=== PATIENT | male | born 1990 | race Caucasian/White ===

== ENCOUNTER 2021-04-02 14:10 | Emergency (ER) | payer OTHER ==
[2021-04-02 14:22] VITALS: BP 131/81; PULSE 75; O2SAT 99
[2021-04-02] MEDS ORDERED: Kenalog-40 IM ONE (14:44)
[2021-04-02] MEDS ORDERED: BENADRYL 25 MG CAPSULE PO ONE (14:44)
[2021-04-02] MEDS ORDERED: BENADRYL 25 MG CAPSULE ONE (14:50)
[2021-04-02] MEDS ORDERED: Kenalog-40 ONE (14:50)
--- NOTE | 2021-04-02 14:50 | ERPHSYRPT ---
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 No swelling or redness of adjacent skin. Also has some rash on the left side of abdomen. 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 No difficulty breathing, choking sensation or difficulty swallowing. Timing/Duration: week(s) (1), constant, gradual onset, worse Quality: burning, itchy Severity: moderate Location: torso, extremities Possible Causes: exposure to allergen Modifying Factors: Improves With: calamine lotion, prednisone Associated Symptoms: rash, No blisters, No change in skin texture Allergies/Adverse Reactions: sulfamethoxazole [From Bactrim] Allergy (Verified 04/02/21 14:23) trimethoprim [From Bactrim] Allergy (Verified 04/02/21 14:23) Hx Tetanus, Diphtheria Vaccination/Date Given: Yes (UP TO DATE) Hx Influenza Vaccination/Date Given: No Hx Pneumococcal Vaccination/Date Given: No Travel Risk - International Travel Have you traveled outside of the country in past 3 weeks: No If Yes, where;: N - Coronavirus Screening Are you exhibiting any of the following symptoms?: No Close contact with a COVID-19 positive Pt in past 14-21 Days: No - Vaccine Status Have you recieved a Covid-19 vaccination: No - Review of Systems Constitutional: No Symptoms Ears, Nose, & Throat: No Symptoms Respiratory: No Symptoms Cardiac: No Symptoms Abdominal/Gastrointestinal: No Symptoms Genitourinary Symptoms: No Symptoms Musculoskeletal: No Symptoms Skin: Pruritis, Rash Neurological: No Symptoms Psychological: No Symptoms Endocrine: No Symptoms Hematologic/Lymphatic: No Symptoms - Past Medical History Pertinent Past Medical History: Yes Neurological History: Seizures ENT History: No Pertinent History Cardiac History: No Pertinent History Respiratory History: No Pertinent History Endocrine Medical History: No Pertinent History Musculoskeletal History: No Pertinent History GI Medical History: No Pertinent History Psycho-Social History: Depression Male Reproductive Disorders: No Pertinent History Other Medical History: SCHIZOPHRENIA - Past Surgical History Past Surgical History: No Other Surgical History: . - Social History Smoking Status: Current some day smoker How long have you smoked: 15 Exposure to second hand smoke: Yes Drug Use: none Patient Lives Alone: No - Nursing Vital Signs Nursing Vital Signs: Initial Vital Signs Temperature 97.8 F 04/02/21 14:15 Pulse Rate 75 04/02/21 14:15 Blood Pressure 131/81 04/02/21 14:15 O2 Sat by Pulse Oximetry 99 04/02/21 14:15 Pain Scale Pain Intensity 0 - Physical Exam General Appearance: no apparent distress, alert Eye Exam: PERRL/EOMI, eyes nml inspection Ears, Nose, Throat Exam: normal ENT inspection, TMs normal, pharynx normal Neck Exam: normal inspection, supple, full range of motion Respiratory Exam: normal breath sounds, lungs clear Cardiovascular Exam: regular rate/rhythm, normal heart sounds Extremity Exam: other (Papular rash both forearm volar aspect up to elbows with itch dior. No increased temperature, nontender, blanchable, no induration. 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 We will continue with short course of oral steroid and Benadryl to go home. Recommended avoiding allergens or using protective clothing's. Discussed signs symptoms of worsening needing return to ER which he seems understanding. Counseled pt/family regarding: diagnosis, need for follow-up - Departure Departure Disposition: Home Clinical Impression: Contact dermatitis due to plants, except food Qualifiers: Contact dermatitis type: irritant Qualified Code(s): L24.7 - Irritant contact dermatitis due to plants, except food Condition: Stable Critical Care Time: No Referrals: DELROY CRESPO MD [Primary Care Provider] - Follow Up with PCP/3 days Instructions: Poison Vane, Poison [place], Poison [place] (DC) Additional Instructions: Use calamine lotion 2-3 times a day. Use protective clothing to avoid allergen exposure again. Follow-up with primary care for reevaluation. Return to ER for worsening rash or if develop difficulty breathing/swallowing/choking sensation etc. Prescriptions: Diphenhydramine HCl 25 mg [Benadryl 25 mg Capsule] 25 mg PO Q4H PRN PRN #20 cap PRN Reason: Allergies Prednisone 20 mg [Deltasone 20 mg] 60 mg PO DAILY 5 Days #15 tablet
== END 2021-04-02 15:15 | disposition home or self-care (01) ==
LOC: ED 14:10
DX: L24.7 Irritant contact dermatitis due to plants, except food (principal)
CPT/HCPCS: 96372; 99283; J3301; A9270-GY

== ENCOUNTER 2023-03-24 14:42 | Emergency (ER) | payer OTHER ==
--- NOTE | 2023-03-24 17:32 | ERPHSYRPT ---
- History of Present Illness Time Seen by Provider: 03/24/23 17:27 Historian: patient, family Exam Limitations: no limitations Patient Subjective Stated Complaint: right side abdominal discomfort Triage Nursing Assessment: Patient reports to ER with complaints of right side upper abdominal pain rating pain 5/10 at this time. Patient states he has been having this pain for a couple of weeks and that it is progressively getting worse. Patient describes pain as constant and states that pain is worsened when he lays on his right side. Patient also reports loose stools and intermittent nausea over the last couple of weeks. Physician History: confirmed hx with independent interview with who did recall additional details of prior medical hx of this pain. Pt has had some abd pain - rad ti right chest weeks x2 s but no workup yet and has had runny stools for more than a year. worse tonight with vomiting. tender right upper quad. no peritoneal signs. Chest clear ht reg without M. ext without edema. no prior known CAD. discussed risk/benefits of CT, CBC, CMP, Lactate, Lipase, AMylase, UA, ekg, trop with pt and family and they wish to proceed - these were ordered adn resaults discussed with pt and family. Timing/Duration: week(s) Activities at Onset: none Quality: fullness, sharpness, stabbing Abdominal Pain Onset Location: RUQ, epigastric Pain Radiation: chest Severity of Pain-Max: moderate Severity of Pain-Current: moderate Modifying Factors: Improves With: nothing Associated Symptoms: nausea, vomiting Previous symptoms: same symptoms as today Allergies/Adverse Reactions: sulfamethoxazole [From Bactrim] Allergy (Verified 03/24/23 15:46) trimethoprim [From Bactrim] Allergy (Verified 03/24/23 15:46) Home Medications: No Reportable Medications [No Reported Medications] 03/24/23 [History] Hx Tetanus, Diphtheria Vaccination/Date Given: Yes Hx Influenza Vaccination/Date Given: No Hx Pneumococcal Vaccination/Date Given: No Travel Risk - International Travel Have you traveled outside of the country in past 3 weeks: No - Coronavirus Screening Are you exhibiting any of the following symptoms?: No Close contact with a COVID-19 positive Pt in past 14-21 Days: No - Vaccine Status Have you recieved a Covid-19 vaccination: No - Review of Systems Constitutional: No Fever, No Chills Eyes: No Symptoms Ears, Nose, & Throat: No Symptoms Respiratory: No Cough, No Dyspnea Cardiac: Other (rad to right chest), No Chest Pain, No Edema, No Syncope Abdominal/Gastrointestinal: Abdominal Pain, Nausea, Vomiting, Diarrhea Genitourinary Symptoms: No Dysuria Musculoskeletal: No Back Pain, No Neck Pain Skin: No Rash Neurological: No Dizziness, No Focal Weakness, No Sensory Changes Psychological: No Symptoms Endocrine: No Symptoms Hematologic/Lymphatic: No Symptoms Immunological/Allergic: No Symptoms All Other Systems: Reviewed and Negative - Past Medical History Pertinent Past Medical History: Yes Neurological History: Seizures ENT History: No Pertinent History Cardiac History: No Pertinent History Respiratory History: No Pertinent History Endocrine Medical History: No Pertinent History Musculoskeletal History: No Pertinent History GI Medical History: No Pertinent History History: No Pertinent History Psycho-Social History: No Pertinent History Male Reproductive Disorders: No Pertinent History Other Medical History: hx drug induced seizures and schizophrenia - Past Surgical History Past Surgical History: No Neuro Surgical History: No Pertinent History Cardiac: No Pertinent History Respiratory: No Pertinent History Gastrointestinal: No Pertinent History Genitourinary: No Pertinent History Musculoskeletal: No Pertinent History Male Surgical History: No Pertinent History Other Surgical History: . - Social History Smoking Status: Former smoker How long have you smoked: 15 Exposure to second hand smoke: Yes Drug Use: none Patient Lives Alone: No - Nursing Vital Signs Nursing Vital Signs: Initial Vital Signs Pulse Rate 72 03/24/23 15:47 Respiratory Rate 19 03/24/23 15:47 Blood Pressure 128/72 03/24/23 15:47 O2 Sat by Pulse Oximetry 97 03/24/23 15:47 Pain Scale Pain Intensity 5 - Physical Exam General Appearance: no apparent distress, alert Eye Exam: PERRL/EOMI, eyes nml inspection Ears, Nose, Throat Exam: normal ENT inspection, pharynx normal, moist mucous membranes Neck Exam: normal inspection, non-tender, supple, full range of motion Respiratory Exam: normal breath sounds, lungs clear, No respiratory distress Cardiovascular Exam: regular rate/rhythm, normal heart sounds Gastrointestinal/Abdomen Exam: soft, tenderness, guarding, No mass, No rebound, No hernia Rectal Exam: deferred Back Exam: normal inspection, normal range of motion, No CVA tenderness, No vertebral tenderness Extremity Exam: normal inspection, normal range of motion, pelvis stable Neurologic Exam: alert, oriented x 3, cooperative, normal mood/affect, nml cerebellar function, sensation nml, No motor deficits Skin Exam: normal color, warm, dry SpO2 Interpretation: normal SpO2: 97 O2 Delivery: Room Air - Course Nursing assessment & vital signs reviewed: Yes EKG Interpreted by Me: Sinus Rhythm, Right [place] Deviation, Other (early repol with ST changes) - CT Exams Abdomen/Pelvis CT Interpretation: Other (right supraq renal cyst) Ordered Tests: Active Orders 24 hr Category Date Time Status EKG-ER Only STAT Care 03/24/23 17:20 Active ABDOMEN AND PELVIS W/0 CONTRAS [CT] Stat Exams 03/24/23 17:15 Completed AMYLASE Stat Lab 03/24/23 17:35 Completed CBC W DIFF Stat Lab 03/24/23 17:35 Completed CMP Stat Lab 03/24/23 17:35 Completed LIPASE Stat Lab 03/24/23 17:35 Completed Lactic Acid Stat Lab 03/24/23 17:30 Completed TROPONIN Q4H Lab 03/24/23 17:35 Completed TROPONIN Q4H Lab 03/24/23 21:30 Ordered TROPONIN Q4H Lab 03/25/23 01:15 Ordered UA W/RFX UR CULTURE Stat Lab 03/24/23 17:15 Completed Lab/Rad Data: Laboratory Result Diagrams 03/24/23 17:35 03/24/23 17:35 Laboratory Results 03/24/23 03/24/23 03/24/23 Range/Units 17:35 17:35 17:30 WBC 5.6 (4.0-10.5) x10^3/uL RBC 5.07 (4.1-5.6) x10^6/uL Hgb 15.7 (12.5-18.0) g/dL Hct 45.6 (42-50) % MCV 89.9 (78-100) fL MCH 31.0 (26-32) pg MCHC 34.4 (32-36) g/dL RDW 11.4 L (11.5-14.0) % Plt Count 206 (150-450) x10^3/uL MPV 9.2 (7.5-11.0) fL Gran % 47.3 (36.0-66.0) % Immature Gran % (Auto) 0.2 (0.00-0.4) % Nucleat RBC Rel Count 0.0 (0.00-0.1) % Eos # (Auto) 0.23 (0-0.5) x10^3/uL Immature Gran # (Auto) 0.01 (0.00-0.03) x10^3u/L Absolute Lymphs (auto) 2.30 (1.0-4.6) x10^3/uL Absolute Monos (auto) 0.39 (0.0-1.3) x10^3/uL Absolute Nucleated RBC 0.00 (0.00-0.01) x10^3u/L Lymphocytes % 40.8 (24.0-44.0) % Monocytes % 6.9 (0.0-12.0) % Eosinophils % 4.1 (0.00-5.0) % Basophils % 0.7 (0.0-0.4) % Absolute Granulocytes 2.67 (1.4-6.9) x10^3/uL Basophils # 0.04 (0-0.4) x10^3/uL Sodium 142 (137-145) mmol/L Potassium 4.4 (3.5-5.1) mmol/L Chloride 104 (98-107) mmol/L Carbon Dioxide 29 (22-30) mmol/L Anion Gap 12.8 (5-15) MEQ/L BUN 11 (9-20) mg/dL Creatinine 1.08 (0.66-1.25) mg/dL Estimated GFR > 60.0 ML/MIN Glucose 98 (74-106) mg/dL Lactic Acid 1.1 (0.4-2.0) Calcium 9.6 (8.4-10.2) mg/dL Total Bilirubin 0.40 (0.2-1.3) mg/dL AST 29 (17-59) U/L ALT 54 H (0-50) U/L Alkaline Phosphatase 90 (38-126) U/L Troponin I < 0.012 (0.000-0.034) ng/mL Serum Total Protein 7.3 (6.3-8.2) g/dL Albumin 4.7 (3.5-5.0) g/dL Amylase 101 (30-110) U/L Lipase 85 (23-300) U/L Urine Color (Yellow) Urine Appearance (Clear) Urine pH (4.6-8.0) Ur Specific [place] (1.005-1.030) Urine Protein (Negative) Urine Glucose (UA) (Negative) mg/dL Urine Ketones (Negative) Urine Blood (Negative) Urine Nitrite (Negative) Urine Bilirubin (Negative) Urine Urobilinogen (0.2) mg/dL Ur Leukocyte Esterase (Negative) U Hyaline Cast (Auto) (0-2) /LPF Urine Microscopic RBC (0-5) /HPF Urine Microscopic WBC (0-5) /HPF Ur Epithelial Cells (None Seen) /HPF Urine Bacteria (None Seen) /HPF Urine Culture Reflexed (NO) Influenza Type A Ag (NEGATIVE) Influenza Type B Ag (NEGATIVE) RSV (PCR) (NEGATIVE) SARS-CoV-2 (PCR) (NEGATIVE) 03/24/23 03/24/23 Range/Units 17:15 17:15 WBC (4.0-10.5) x10^3/uL RBC (4.1-5.6) x10^6/uL Hgb (12.5-18.0) g/dL Hct (42-50) % MCV (78-100) fL MCH (26-32) pg MCHC (32-36) g/dL RDW (11.5-14.0) % Plt Count (150-450) x10^3/uL MPV (7.5-11.0) fL Gran % (36.0-66.0) % Immature Gran % (Auto) (0.00-0.4) % Nucleat RBC Rel Count (0.00-0.1) % Eos # (Auto) (0-0.5) x10^3/uL Immature Gran # (Auto) (0.00-0.03) x10^3u/L Absolute Lymphs (auto) (1.0-4.6) x10^3/uL Absolute Monos (auto) (0.0-1.3) x10^3/uL Absolute Nucleated RBC (0.00-0.01) x10^3u/L Lymphocytes % (24.0-44.0) % Monocytes % (0.0-12.0) % Eosinophils % (0.00-5.0) % Basophils % (0.0-0.4) % Absolute Granulocytes (1.4-6.9) x10^3/uL Basophils # (0-0.4) x10^3/uL Sodium (137-145) mmol/L Potassium (3.5-5.1) mmol/L Chloride (98-107) mmol/L Carbon Dioxide (22-30) mmol/L Anion Gap (5-15) MEQ/L BUN (9-20) mg/dL Creatinine (0.66-1.25) mg/dL Estimated GFR ML/MIN Glucose (74-106) mg/dL Lactic Acid (0.4-2.0) Calcium (8.4-10.2) mg/dL Total Bilirubin (0.2-1.3) mg/dL AST (17-59) U/L ALT (0-50) U/L Alkaline Phosphatase (38-126) U/L Troponin I (0.000-0.034) ng/mL Serum Total Protein (6.3-8.2) g/dL Albumin (3.5-5.0) g/dL Amylase (30-110) U/L Lipase (23-300) U/L Urine Color Yellow (Yellow) Urine Appearance Clear (Clear) Urine pH 7.5 (4.6-8.0) Ur Specific [place] <=1.005 (1.005-1.030) Urine Protein Negative (Negative) Urine Glucose (UA) Negative (Negative) mg/dL Urine Ketones Negative (Negative) Urine Blood Negative (Negative) Urine Nitrite Negative (Negative) Urine Bilirubin Negative (Negative) Urine Urobilinogen 0.2 (0.2) mg/dL Ur Leukocyte Esterase Negative (Negative) U Hyaline Cast (Auto) NONE SEEN (0-2) /LPF Urine Microscopic RBC 0-2 (0-5) /HPF Urine Microscopic WBC 0-2 (0-5) /HPF Ur Epithelial Cells None Seen (None Seen) /HPF Urine Bacteria None Seen (None Seen) /HPF Urine Culture Reflexed NO (NO) Influenza Type A Ag NEGATIVE (NEGATIVE) Influenza Type B Ag NEGATIVE (NEGATIVE) RSV (PCR) NEGATIVE (NEGATIVE) SARS-CoV-2 (PCR) NEGATIVE (NEGATIVE) - Progress Progress: improved, re-examined Progress Note: 03/24/23 19:47 discussed results with pt and and that we cannot completly exclude cardiac without furhter testing and they agree with and choose outpt w/u rather than inpt since atypical for cardiac and testing not indicative of cardiac at this time and have the decisional capacity to make this choice. THey are aware that we do not know the precise cause of the abdominal symptoms even thoug a cyst was found in that area - there still could be things developing. 03/24/23 19:50 Counseled pt/family regarding: lab results, diagnosis, need for follow-up, rad results Medical Desision Making - Independent Historian Additional History obtained from: Spouse - Diagnostic Testing Diagnostic test were ordered, analyzed, and reviewed by me: Yes Radiological Interpretation: Teleradiologist Report - Risk of complications The pt has a high risk of morbidity or mortality based on: Decision regarding hospitilization or escalation of hosp level of care - Departure Departure Disposition: Home Clinical Impression: abdominal pain unknown cause with chest , Abdominal cyst, with chest radiation Condition: Good Critical Care Time: No Referrals: DELROY CRESPO MD [Primary Care Provider] - Follow up/PCP as directed Instructions: Abdominal Pain, Adult ED, Chest Pain (DC) Additional Instructions: although we have found a cyst in your abdomen where the symptoms are - there still could be another cause for your symptoms and further workup with your Dr. is important. Also we are providing chest pain instructions to look out for as although your symptoms are not typical for cardiac conditions it is still a possibility your Dr may want to explore. Return meantime if not improving or further symptoms of concern.
[2023-03-24 17:38] LABS: Absolute Neutrophil Ct (ANC) 2.67 x10^3/uL (1.4-6.9); BASOPHIL % 0.7 % (0.0-0.4); Basophil (Absolute #) 0.04 x10^3/uL (0-0.4); Eosinophil % 4.1 % (0.00-5.0); Eosinophil (Absolute #) 0.23 x10^3/uL (0-0.5); Hematocrit 45.6 % (42-50); Hemoglobin 15.7 g/dL (12.5-18.0); IMMATURE GRAN # 0.01 x10^3u/L (0.00-0.03); IMMATURE GRAN % 0.2 % (0.00-0.4); Lymphocytes % 40.8 % (24.0-44.0); Mean Cell Volume 89.9 fL (78-100); Mean Corpuscular Hgb Concent. 34.4 g/dL (32-36); Mean Platelet Volume 9.2 fL (7.5-11.0); Monocyte (Absolute #) 0.39 x10^3/uL (0.0-1.3); Monocytes % 6.9 % (0.0-12.0); Neutrophil % 47.3 % (36.0-66.0); Platelet Count 206 x10^3/uL (150-450); Red Blood Count 5.07 x10^6/uL (4.1-5.6); Red Cell Distribution Width 11.4 % (11.5-14.0); White Blood Count 5.6 x10^3/uL (4.0-10.5)
[2023-03-24 17:52] LABS: Appearance Clear (Clear); Bacteria None Seen /HPF (None Seen); Bilirubin Negative (Negative); Blood Negative (Negative); Epithelial Cells None Seen /HPF (None Seen); Glucose, Urine Negative (Negative); Hyaline Casts NONE SEEN /LPF (0-2); Ketones Negative (Negative); Leukocyte Esterase Negative (Negative); Nitrite Negative (Negative); Ph 7.5 (4.6-8.0); Protein,Urine Dip Negative (Negative); RBC 0-2 /HPF (0-5); Specific Gravity <=1.005 (1.005-1.030); Urobilinogen 0.2 mg/dL (0.2); WBC 0-2 /HPF (0-5)
[2023-03-24 17:53] LABS: ADD URINE CULTURE? NO (NO)
[2023-03-24 18:02] LABS: ALBUMIN 4.7 g/dL (3.5-5.0); ALKALINE PHOSPHATASE 90 U/L (38-126); AMYLASE 101 U/L (30-110); ANION GAP 12.8 MEQ/L (5-15); BLOOD UREA NITROGEN 11 mg/dL (9-20); CHLORIDE 104 mmol/L (98-107); Calcium 9.6 mg/dL (8.4-10.2); Carbon Dioxide 29 mmol/L (22-30); Creatinine 1 1.08 mg/dL (0.66-1.25); EST GLOMERULAR FILTRATION RATE > 60.0 ML/MIN; Glucose 98 mg/dL (74-106); LIPASE 85 U/L (23-300); Potassium 4.4 mmol/L (3.5-5.1); SGOT/AST 29 U/L (17-59); SGPT/ALT 54 U/L (0-50); SODIUM 142 mmol/L (137-145); TROPONIN < 0.012 ng/mL (0.000-0.034); Total Protein 7.3 g/dL (6.3-8.2)
[2023-03-24 18:15] LABS: INFLUENZA A NEGATIVE (NEGATIVE); INFLUENZA B NEGATIVE (NEGATIVE); RESPIRATORY SYNCTIAL VIRUS NEGATIVE (NEGATIVE); SARS-CoV-2 Xpert Express NEGATIVE (NEGATIVE)
--- NOTE | 2023-03-24 18:25 | XRAY ---
CLINICAL HISTORY:abd pain COMPARISON:None. TECHNIQUE:A CT scan of the abdomen and pelvis was performed without IV contrast. Coronal and sagittal reconstructive images were also obtained. FINDINGS: A scan through the lower chest reveals an unremarkable lung basis and heart. Abdomen: The liver is mildly enlarged and measures 18 cm. No focal or diffuse parenchymal abnormality. The gallbladder is normally distended and shows no definite stones. There is no evidence of wall thickening/ pericholecystic collection. The portal vein, intrahepatic biliary radicals, and the bile ducts are normal. The spleen, pancreas, and left adrenal gland are unremarkable. A sizable well-defined right supra-renal gland cystic mass lesion is seen, measuring about 4.5 X 3.6 X 4.6 cm and displaying about 5.5 HU. The kidneys are unremarkable. They are normal in size and shape. No calculi or hydronephrosis. The ascending colon, the transverse colon, the descending colon, visualized small bowel loops are unremarkable. There is no evidence of significant enlargement of the mesenteric or retroperitoneal lymph nodes. Pelvis: The urinary bladder is unremarkable. The rectosigmoid colon is unremarkable. The prostate is of average size. The pelvic vasculature is unremarkable. No evidence of pelvic lymphadenopathy. No definite bony abnormalities could be depicted. IMPRESSION: 1. Right supra-renal gland simple cyst measuring 4.5 X 3.6 X 4.6 cm. 2. Otherwise unremarkable CT study of the abdomen and pelvis. Electronically Signed by: Moe Whyte MD. (03/24/2023 17:23:37 NAME PLATE STAMPER)
[2023-03-24 19:32] VITALS: O2SAT 97
[2023-03-24 20:00] VITALS: BP 125/84; PULSE 67; RESP 18
== END 2023-03-24 20:31 | disposition home or self-care (01) ==
LOC: ED 14:42
DX: R10.9 Unspecified abdominal pain (principal); N28.1 Cyst of kidney, acquired; R07.9 Chest pain, unspecified; R19.7 Diarrhea, unspecified; R11.10 Vomiting, unspecified; Z28.310 Unvaccinated for COVID-19
CPT/HCPCS: 0241U; 36415; 74176; 80053; 81001; 82150; 83605; 83690; 84484; 85025; 93005; 99283